=== PATIENT | female | born 1955 | race Caucasian/White ===

== ENCOUNTER 2021-05-28 23:29 | Emergency (ER) | payer OTHER ==
[~2021-05-28 23:29] MED LIST: CYCLOBENZAPRINE10 MG PO; MEDROL4 MG PO; NORCO 5-325 TA1 EACH PO
[2021-05-29 01:38] LABS: HEMOGLOBIN 12.6 gm/dl (12.3-15.3); RED BLOOD COUNT 4.38 M/UL (4.00-5.10); WHITE BLOOD COUNT 9.7 K/UL (4.5-11.0)
== END 2021-05-29 06:00 | disposition home or self-care (01) ==
LOC: ER1 23:29
PROVIDERS: Student in an Organized Health Care Education/Training Program
DX: E86.0 Dehydration (principal); I95.9 Hypotension, unspecified; I10 Essential (primary) hypertension; E11.9 Type 2 diabetes mellitus without complications; Z90.710 Acquired absence of both cervix and uterus
CPT/HCPCS: 70450; 71045; 80048; 82550; 82553; 84484; 85025; 93005; 99284; J7030